=== PATIENT | male | born 1955 | race Caucasian/White ===

== ENCOUNTER → 2018-09-10 | Outpatient (CLI) | payer BC, OTHER ==
[~2018-09-10] MED LIST: ASPI-586 PO; GLUC-113 PO; LISI10TA2 PO; MULT-1056 PO; OCUVITE SOFTGE1 EACH PO; OXYC-465 PO
--- NOTE | 2018-09-10 13:39 | Diagnostic Imaging Report ---
CLINICAL INDICATION: Patient fell and twisted his left hip, low back area many years ago. Patient has low back pain and left hip pain and also affected his left knee. EXAM: MRI of the lumbar spine performed without IV contrast. Sequences include sagittal T2, sagittal T1, sagittal T2 fat-sat, and axial T2. COMPARISON: None. FINDINGS: There is no acute lumbar spine fracture or dislocation. The visualized portions of the distal thoracic spinal cord, conus medullaris, and cauda equina nerve roots are unremarkable. The conus medullaris tip is seen at the upper L1 vertebral body level. There is no significant paraspinal soft tissue abnormality. There are degenerative spurs and facet arthropathy seen throughout the lumbar spine. T12-L1: There is mild facet arthropathy. There is no significant central spinal canal or neural foramen narrowing. L1-L2: There is mild bilateral facet arthropathy. There is no significant central spinal canal or neural foramen narrowing. L2-L3: There is moderate bilateral facet arthropathy. There are hypertrophic disc spurs extending into the right subarticular and far right lateral region. There is moderate right neuroforamen narrowing. There is no significant left neuroforamen narrowing or central canal narrowing. L3-L4: There is mild diffuse disc bulge with peon-ex-tsqhwwor loss of intervertebral disc height. There is moderate bilateral facet arthropathy. There is mild central canal narrowing, zgfsjpoe-bj-slwijp right neuroforamen narrowing, and moderate left neuroforamen narrowing. L4-L5: There is severe bilateral facet arthropathy/hypertrophy. There is uhdydcjr-xp-mfvbcz bilateral neuroforamen narrowing (right side more than the left). There is moderate central canal stenosis and prominence of the epidural fat contributing to central canal stenosis. There is no significant disc bulge seen. L5-S1: There is mild broad posterior disc bulge with disc spurs extending into the right foraminal region. There is moderate bilateral facet arthropathy with hypertrophic changes. There is no significant central canal narrowing. There is prominence of the epidural fat. There is qbedhjsc-ea-rjcdbs right neuroforamen narrowing and mild left neuroforamen narrowing. IMPRESSION: 1: There is no acute lumbar spine fracture or dislocation. 2: There is multilevel lumbar spine degenerative disease with multilevel facet arthropathy/hypertrophy involving the zsh-jv-tpwze lumbar spine. There is associated ttiivnxp-ba-veikpy multilevel neuroforamen narrowing, as described above. 3: There are L3-L4 hypertrophic far right lateral disc spurs and disc spurs extending into the right foraminal region which cause yjrzgghz-je-jmueyu right neuroforamen narrowing. Dictated by: Dictated on workstation # [id number]
== END ==
LOC: RAD 08:40
PROVIDERS: ATTEND Family Medicine
DX: M51.27 Other intervertebral disc displacement, lumbosacral region (principal); M46.87 Other specified inflammatory spondylopathies, lumbosacral region; M48.07 Spinal stenosis, lumbosacral region; M47.816 Spondylosis without myelopathy or radiculopathy, lumbar region; M51.36 Other intervertebral disc degeneration, lumbar region; X50.1XXA Overexertion from prolonged static or awkward postures, initial encounter; W19.XXXA Unspecified fall, initial encounter
CPT/HCPCS: 72148

== ENCOUNTER → 2021-03-29 | Outpatient (CLI) | payer BC, OTHER ==
[~2021-03-29] MED LIST changes: +CATHETER FLUSH 10 ML SYR IV PRN; -LISI10TA2 PO; +LISI10TA25 PO; -OXYC-465 PO; +OXYC-556 PO; +REGADENOSON 0.4 MG/5 ML SYR (LEXISCAN) IV ONE
[2021-03-29 14:01] VITALS: BP 197/102
--- NOTE | 2021-03-29 15:33 | Cardiology Stress Test Report ---
Stress Test Report Date of Procedure/Referring: Date of Procedure: Mar 29, 2021 PCP Mariana Gonzalez MD Admitting Physician Fausto Barragan DO Indications: HTN Baseline Heart Rate: 66 Baseline Blood Pressure: Blood Pressure Systolic: 197 Blood Pressure Diastolic: 102 Baseline Vitals Vital Signs Date Time Temp Pulse Resp B/P (MAP) Pulse Ox O2 Delivery O2 Flow Rate FiO2 03/29/21 14:01 79 197/102 (133) 98 Baseline EKG: Baseline EKG: NSR Summary After explaining the procedure to the patient, he signed a consent and then brought to the stress nuclear laboratory. Patient received 0.4 mg Lexiscan for stress test, ECG, heart rate and blood pressure were monitored continuously. Resting and stress dose of radio tracer were injected, imaging was acquired and reviewed in short axis, horizontal long axis and vertical long axis views. TID: 1.05 SSS: 6 SDS: 0 EF: 47 1. Patient was unable to exercise beyond 2 minutes and 32 seconds on standard Piero protocol, test was terminated and converted to Lexiscan Myoview stress test 2. Patient tolerated Lexiscan well 3. Frequent PVCs noted during test persisted during test with ventricular bigeminy 4. Mild decrease uptake involving the mid to apical anterior wall with mild reversibility, fixed defect at the mid to apical inferior wall 5. Normal left ventricular size, EF 47% MARIANA GONZALEZ MD Mar 29, 2021 15:33
== END ==
LOC: CARD 12:30
PROVIDERS: ATTEND Internal Medicine Cardiovascular Disease
DX: I10 Essential (primary) hypertension (principal)
CPT/HCPCS: 78452; 93017; A9502

== ENCOUNTER 2021-04-12 09:00 | Day surgery (SDC) | payer BC, OTHER ==
[~2021-04-12] VITALS: Ht 175.3 cm; Wt 128.9 kg
[2021-04-12 07:28] VITALS: BP 149/86
--- NOTE | 2021-04-12 07:32 | Diagnostic Imaging Report ---
EXAM: CHEST 1 VIEW, AP/PA ONLY INDICATION: Shortness of breath. Chest pain. COMPARISON: None. FINDINGS: Normal heart size and pulmonary vascularity. No dense consolidation, pleural effusion or pneumothorax. No acute osseous findings. IMPRESSION: No acute cardiopulmonary findings. Dictated by: Dictated on workstation # [id number]
[2021-04-12 07:43] LABS: HEMATOCRIT 45 % (40-54); MEAN CORPUSCULAR HEMOGLOBIN 30 pg (25-34); MEAN CORPUSCULAR HGB CONC 33 g/dL (32-36); MEAN CORPUSCULAR VOLUME 89 fL (80-99); MEAN PLATELET VOLUME 11.2 fL (9.0-12.2); PLATELET COUNT 209 10^3/uL (130-400); WHITE BLOOD COUNT 7.7 10^3/uL (4.3-11.0)
[2021-04-12 07:51] LABS: ALBUMIN 4.1 GM/DL (3.2-4.5)
[2021-04-12 07:52] LABS: POTASSIUM 4.5 MMOL/L (3.6-5.0)
[2021-04-12 07:53] LABS: CALCIUM 9.4 MG/DL (8.5-10.1)
[2021-04-12 07:54] LABS: PROTHROMBIN TIME PATIENT 13.6 SEC (12.2-14.7); TOTAL PROTEIN 7.1 GM/DL (6.4-8.2)
[2021-04-12 07:56] LABS: BILIRUBIN,TOTAL 0.4 MG/DL (0.1-1.0)
--- NOTE | 2021-04-12 08:55 | Conscious Sedation/ASA ---
Conscious Sedation Pre-Proced Time 08:55 ASA Score 3 For ASA 3 and 4: Consider anesthesia and medical clearance. Also, for patients with a history of failed moderate sedation consider anesthesia. Airway Lungs Heart ASA score ASA 1: a normal healthy patient ASA 2: a patient with a mild systemic disease (mid diabetes, controlled hypertension, obesity x ASA 3: a patient with a severe systemic disease that limits activity (angina, COPD, prior Myocardial infarction) ASA 4: a patient with an incapacitating disease that is a constant threat to life (CHF, renal failure) ASA 5: a moribund patient not expected to survive 24 hrs. (ruptured aneurysm) ASA 6: a declared brain- patient whose organs are being harvested. For emergent operations, add the letter E after the classification Mallampati Classification Grade 3 Sedation Plan Analgesia, Amnesia, Plan communicated to team members, Discussed options with patient/fam, Discussed risks with patient/fam The patient is an appropriate candidate to undergo the planned procedure, sedation, and anesthesia. The patient immediately re-assessed prior to indication. MARIANA LOBO MD Apr 12, 2021 08:55
[~2021-04-12 09:00] MED LIST changes: +ASCO1CAP4 PO; -CATHETER FLUSH 10 ML SYR IV PRN; +CHOL100048 PO; +FLUT15.845 NS; +HEParin (CATH LAB) 2,000 ML IV ONE; +LIDOCAINE 1% INJ 20 ML VIAL ONE; +LISI5TAB20 PO; +MTP25TSR PO; +NS IV 1000 ML 1,000 ML IV SCH; +NS IV 1000 ML 1,000 ML ONE; +PANT40TA52 PO; -REGADENOSON 0.4 MG/5 ML SYR (LEXISCAN) IV ONE
[2021-04-12] MEDS ORDERED: HEParin 1000 UNIT/ML (10ML VIAL) FOR BOLUS ONE (09:02)
[2021-04-12] MEDS ORDERED: VERAPAMIL 5 MG/2 ML (CALAN) VIAL IV ONE (09:02)
[2021-04-12] MEDS ORDERED: fentaNYL INJ 100 MCG/2 ML AMP ONE (09:02)
[2021-04-12] MEDS ORDERED: MIDAZOLAM 5 MG/5 ML (VERSED) VIAL ONE (09:02)
[2021-04-12] MEDS ORDERED: NITRO DRIP 25000 MCG/D5W 250 ML IV ONE (09:03)
[2021-04-12 09:10] LABS: CHOLESTEROL 193 MG/DL (< 200); HDL CHOLESTEROL 35 MG/DL (40-60); TRIGLYCERIDES 123 MG/DL (<150); VLDL CHOLESTEROL 25 MG/DL (5-40)
[2021-04-12 09:32] LABS: BILIRUBIN,URINE NEGATIVE (NEGATIVE); CLARITY,URINE CLEAR; COLOR,URINE YELLOW; GLUCOSE, URINE (UA) NEGATIVE (NEGATIVE); KETONES,URINE NEGATIVE (NEGATIVE); LEUKOCYTE ESTERASE ,URINE NEGATIVE (NEGATIVE); NITRITE,URINE NEGATIVE (NEGATIVE); PROTEIN,URINE NEGATIVE (NEGATIVE)
[2021-04-12 09:42] LABS: BACTERIA,URINE NEGATIVE /HPF; SQUAMOUS EPITHELIAL CELL,UR RARE /HPF
[2021-04-12] MEDS ORDERED: ASPIRIN 325 MG (5 GR) TABLET ONE (10:01)
[2021-04-12] MEDS ORDERED: CLOPIDOGREL 300 MG (PLAVIX) TABLET PO ONE (10:01)
[2021-04-12] MEDS ORDERED: NS IV 1000 ML 1,000 ML IV SCH (10:15)
--- NOTE | 2021-04-12 10:16 | Cardiac Cath Report ---
Cardiac Cath Report Physician (s)/[employer] Officer (s) Physician MARIANA LOBO MD Pre-Procedure Diagnosis Pre-Procedure Diagnosis: Coronary artery disease Post-Procedure Note Procedure Start Date: Apr 12, 2021 Name of Procedure: Left heart catheterization Stenting to the LAD Findings/Procedure Note PROCEDURE NOTE: 66-year-old gentleman with history of hypertension, had an abnormal stress test, scheduled for cardiac catheterization possible PTCA. After explaining the procedure to the patient, all pros and cons were explained, all questions were answered. The patient signed the consent and then he was placed on the cardiac catheterization laboratory. Groin was prepped SL fashion local anesthesia was used. Sheath placed in the right radial artery, Circle catheter was advanced to the left ventricular cavity, pressure was measured, pul lback LV to aorta was done, engaged the right and left coronary system, angiogram was done. Patient has severe stenosis in the mid LAD. EBU 3.5 guide was advanced to the left system, total of 6000 units of heparin was given. BMW wire was advanced and parked distally predilatation with 3.0 balloon then deployment of zamzam point stent 3.5 x 18 mm expanded to 3.72 mm with excellent results under 17 atmospheres. Angiogram showed excellent results. At the end of the procedure the sheath was removed. Vascular band was used FINDINGS: Hemodynamics LV 114/12, end-diastolic pressure of 12 Aorta 126/82 mean of 85 ANATOMY: Left Main is free of obstructive disease Left Anterior Descending has severe stenosis at the midportion successful balloon angioplasty then deployment of zamzam point stent 3.5 x 18 mm expanded to 3.72 mm with excellent results, distal LAD has 40 to 50% stenosis Left Circumflex is moderate in size with no obstructive disease Right Coronary Artery has mild disease nonobstructive disease LV Gram was not done, pressure was measured CONCLUSION: 1. Severe stenosis in the mid LAD successful deployment of zamzam point stent 3.5 x 18 mm expanded to 3.72 mm with excellent results. 40 to 50% stenosis in the distal LAD 2. Otherwise mild coronary artery disease nonobstructive disease 3. Normal left ventricular end-diastolic pressure DISCUSSION AND RECOMMENDATION: Patient was loaded with aspirin and Plavix, started on Lipitor 20 mg daily, maximize medical therapy Anesthesia Type: Conscious Sedation Estimated blood loss (mL): 15 ml Contrast Amount: 135 ml Total Radiation Dose: 1081 mGy Post-Procedure Diagnosis Post-operative diagnosis: Chest pain Coronary artery disease Hypertension Hyperlipidemia MARIANA LOBO MD Apr 12, 2021 10:16
[2021-04-12] MEDS ORDERED: ATOR20TA66 PO (14:31)
[2021-04-12] MEDS ORDERED: CLOP75TA28 PO (14:31)
--- NOTE | 2021-04-12 14:32 | Discharge Inst-Post CATH ---
Discharge Inst-CATH/EP Problems Reviewed?: Yes Post Cardiac Cath/EP D/C Inst Follow Up/Plan Appointment with Dr Gonzalez in 2-4 weeks <b>CARDIAC CATH/EP PROCEDURE DISCHARGE INSTRUCTIONS</b> ACTIVITY * Go Home directly and rest. * Limit activity of the leg (or wrist if it was used) for 7 days including aerobics, swimming, jogging, bicycling, etc. * Restrict stair-climbing for 7 days if possible, if not, climb up with your non-cath leg, then bring together on the same step. * Avoid lifting, pushing, pulling or excessive movement of the affected extremity for 7 days. * Customary sexual activity may be resumed after 2 days-use caution not to use a position that strains or causes pain to the affected extremity. * No driving for 24 hours. * NO SMOKING. * Avoid straining for bowel movements for 7 days. * Gentle walking on level ground is allowed. * Returning to work will depend on the type of procedure and the results. Your doctor will discuss this with you. CALL YOUR DOCTOR FOR ANY OF THE FOLLOWING: *If bleeding from the puncture site occurs- Apply gentle pressure to site with clean cloth and call your doctor or EMS. * If a knot or lump forms under the skin, increases in size, or causes pain. * If bruising appears to be worsening or moving further down your leg instead of disappearing. * Temperature above 101 F. CARE OF YOUR GROIN INCISION; * Bruising or purple discoloration of the skin near the puncture site is common. * You may shower only, no bathtub bathing for 5 days. Be careful to avoid slipping as your leg may feel stiff. * If a closure device was used on your femoral artery, please see the attached guide regarding care of the device and your leg. * Leave dressing on FOR 24 hours. CARE OF YOUR WRIST INCISION; * Bruising or purple discoloration of the skin near the puncture site is common. * You may shower. * DO NOT submerge wrist. * Leave dressing on FOR 24 hours. MARIANA GONZALEZ MD Apr 12, 2021 14:31
[2021-04-13] MEDS ORDERED: PANTOPRAZOLE 40 MG (PROTONIX) TAB PO SCH (09:00)
[2021-04-13] MEDS ORDERED: lisINopril 5 MG (PRINIVIL) TABLET PO SCH (09:00)
[2021-04-13] MEDS ORDERED: ASPIRIN E.C. 81 MG (ECOTRIN) TAB PO SCH (09:00)
[2021-04-13] MEDS ORDERED: CLOPIDOGREL 75 MG (PLAVIX) TABLET PO SCH (09:00)
== END 2021-04-12 16:30 | disposition home or self-care (01) ==
LOC: CATH 09:00 → CSD 10:27 → CATH 16:30
PROVIDERS: ATTEND Internal Medicine Cardiovascular Disease
DX: I25.10 Atherosclerotic heart disease of native coronary artery without angina pectoris (principal); I10 Essential (primary) hypertension; E78.2 Mixed hyperlipidemia; J44.9 Chronic obstructive pulmonary disease, unspecified; G47.33 Obstructive sleep apnea (adult) (pediatric); I65.23 Occlusion and stenosis of bilateral carotid arteries; Z79.82 Long term (current) use of aspirin; Z87.891 Personal history of nicotine dependence; Z86.16 Personal history of COVID-19; Z79.899 Other long term (current) drug therapy
CPT/HCPCS: 71045; 80053; 80061; 81000; 85027; 85610; 85730; 87081; 93458; C1725; C1769; C1874; C1887; C1894; C9600; 36415

== ENCOUNTER → 2022-04-16 | Outpatient (CLI) | payer MEDICARE, OTHER ==
[~2022-04-16] VITALS: Ht 172 cm; Wt 122.0 kg
[~2022-04-16] MED LIST changes: +ATOR20TA66 PO; +CLOP75TA28 PO; -HEParin (CATH LAB) 2,000 ML IV ONE; -LIDOCAINE 1% INJ 20 ML VIAL ONE; -NS IV 1000 ML 1,000 ML IV SCH; -NS IV 1000 ML 1,000 ML ONE; +REGADENOSON 0.4 MG/5 ML SYR (LEXISCAN) IV ONE
[2022-04-16] MEDS: CATHETER FLUSH 10 ML SYR IVP PRN ×2 (09:16→10:05)
[2022-04-16 10:02] VITALS: BP 161/107
--- NOTE | 2022-04-16 12:37 | Cardiology Stress Test Report ---
Stress Test Report Date of Procedure/Referring: Date of Procedure: Apr 16, 2022 PCP Fausto Barragan DO Admitting Physician Admitting Physician: Attending Physician: Jayesh Gonzalez MD Indications: CHF Baseline Heart Rate: 60 Baseline Blood Pressure: Blood Pressure Systolic: 161 Blood Pressure Diastolic: 107 Baseline Vitals Vital Signs Date Time Temp Pulse Resp B/P (MAP) Pulse Ox O2 Delivery O2 Flow Rate FiO2 04/16/22 10:02 64 16 161/107 (125) 98 Room Air Baseline EKG: Baseline EKG: NSR Summary After explaining the procedure to the patient, he signed a consent and then brought to the stress nuclear laboratory. Patient received 0.4 mg Lexiscan for stress test, ECG, heart rate and blood pressure were monitored continuously. Resting and stress dose of radio tracer were injected, imaging was acquired and reviewed in short axis, horizontal long axis and vertical long axis views. TID: 1.04 SSS: 9 SDS: 6 EF: 39 1. Patient tolerated Lexiscan well 2. Frequent PVCs/ventricular trigeminy noted and persisted during test 3. Total infarction of the apex with reversible ischemia involving the mid to apical anterior wall and inferoapical segment 4. Dilated left ventricle with anterior wall hypokinesia ejection fraction 39% Copy Copies To 1: FAUSTO BARRAGAN BASHAR J MD Apr 16, 2022 12:37
== END ==
LOC: CARD 08:59
PROVIDERS: ATTEND Internal Medicine Cardiovascular Disease
DX: I10 Essential (primary) hypertension (principal)
CPT/HCPCS: 78452; 93017; A9502

== ENCOUNTER 2022-04-25 11:43 | Day surgery (SDC) | payer MEDICARE, OTHER ==
[~2022-04-25] VITALS: Ht 175 cm; Wt 122.0 kg
[2022-04-25] VITALS (8 sets, daily range): BP systolic 130–180; BP diastolic 80–119
[~2022-04-25 11:43] MED LIST changes: -REGADENOSON 0.4 MG/5 ML SYR (LEXISCAN) IV ONE
[2022-04-25] MEDS ORDERED: NS IV 1000 ML 1,000 ML IV SCH ×3 (12:00→14:00)
[2022-04-25] MEDS ORDERED: NS IV 1000 ML 1,000 ML ONE (12:22)
[2022-04-25] MEDS ORDERED: HEParin (CATH LAB) 2,000 ML IV ONE (12:22)
[2022-04-25] MEDS ORDERED: LIDOCAINE 1% INJ 20 ML VIAL ONE (12:23)
[2022-04-25 12:31] LABS: BILIRUBIN,URINE NEGATIVE (NEGATIVE); CLARITY,URINE CLEAR; COLOR,URINE YELLOW; GLUCOSE, URINE (UA) NEGATIVE (NEGATIVE); KETONES,URINE NEGATIVE (NEGATIVE); LEUKOCYTE ESTERASE ,URINE NEGATIVE (NEGATIVE); NITRITE,URINE NEGATIVE (NEGATIVE); PROTEIN,URINE NEGATIVE (NEGATIVE)
[2022-04-25 12:34] LABS: HEMATOCRIT 46 % (40-54); HEMOGLOBIN 15.2 g/dL (13.3-17.7); MEAN CORPUSCULAR HEMOGLOBIN 29 pg (25-34); MEAN CORPUSCULAR HGB CONC 33 g/dL (32-36); MEAN CORPUSCULAR VOLUME 87 fL (80-99); MEAN PLATELET VOLUME 10.7 fL (9.0-12.2); PLATELET COUNT 225 10^3/uL (130-400); WHITE BLOOD COUNT 8.7 10^3/uL (4.3-11.0)
--- NOTE | 2022-04-25 12:38 | Diagnostic Imaging Report ---
INDICATION: Coronary artery disease Frontal chest obtained at 1214 p.m. compared to 04/12/2021 Heart is borderline in size. There is mild central vascular congestion without focal infiltrate or edema. There is no pleural fluid or pneumothorax. IMPRESSION: Negative chest. Dictated by: Dictated on workstation # [id number]
[2022-04-25 12:43] LABS: PROTHROMBIN TIME PATIENT 13.3 SEC (12.2-14.7)
[2022-04-25 12:44] LABS: BACTERIA,URINE NEGATIVE /HPF; RBC,URINE RARE /HPF
[2022-04-25 12:48] LABS: BILIRUBIN,TOTAL 0.6 MG/DL (0.1-1.0); CALCIUM 9.9 MG/DL (8.5-10.1); CREATININE SERUM 0.92 MG/DL (0.60-1.30); POTASSIUM 4.1 MMOL/L (3.6-5.0); TOTAL PROTEIN 6.9 GM/DL (6.4-8.2)
--- NOTE | 2022-04-25 13:03 | Cardiac Procedure Note-CS/ASA ---
Pre-Procedure Note Pre-Op Procedure Note Date of Available H&P: Apr 16, 2022 Date H&P Reviewed: Apr 25, 2022 Time H&P Reviewed: 13:02 History & Physical: H&P Reviewed, Patient Examed, No changes noted Pre-Operative Diagnosis: Coronary artery disease Conscious Sedation Pre-Proced ASA Score 3 For ASA 3 and 4: Consider anesthesia and medical clearance. Also, for patients with a history of failed moderate sedation consider anesthesia. Airway Lungs Heart ASA score ASA 1: a normal healthy patient ASA 2: a patient with a mild systemic disease (mid diabetes, controlled hypertension, obesity ASA 3: a patient with a severe systemic disease that limits activity (angina, COPD, prior Myocardial infarction) ASA 4: a patient with an incapacitating disease that is a constant threat to life (CHF, renal failure) ASA 5: a moribund patient not expected to survive 24 hrs. (ruptured aneurysm) ASA 6: a declared brain- patient whose organs are being harvested. For emergent operations, add the letter E after the classification Mallampati Classification Grade 3 Sedation Plan Analgesia, Amnesia, Plan communicated to team members, Discussed options with patient/fam, Discussed risks with patient/fam The patient is an appropriate candidate to undergo the planned procedure, sedation, and anesthesia. The patient immediately re-assessed prior to indication. MARIANA LOBO MD Apr 25, 2022 13:02
[2022-04-25] MEDS ORDERED: METO50TA7 PO (13:08)
[2022-04-25] MEDS ORDERED: ATOR20TA66 PO (13:08)
[2022-04-25] MEDS ORDERED: ASPI-1238 PO (13:08)
[2022-04-25] MEDS ORDERED: POLY30DR6 OP (13:08)
[2022-04-25] MEDS ORDERED: CLOP75TA28 PO (13:08)
[2022-04-25] MEDS ORDERED: VERAPAMIL 5 MG/2 ML (CALAN) VIAL IV ONE (13:26)
[2022-04-25] MEDS ORDERED: MIDAZOLAM 5 MG/5 ML (VERSED) VIAL ONE (13:26)
[2022-04-25] MEDS ORDERED: HEParin 1000 UNIT/ML (10ML VIAL) FOR BOLUS ONE (13:26)
[2022-04-25] MEDS ORDERED: NITRO DRIP 25000 MCG/D5W 250 ML IV ONE (13:26)
[2022-04-25] MEDS ORDERED: fentaNYL INJ 100 MCG/2 ML AMP ONE (13:26)
--- NOTE | 2022-04-25 13:58 | Discharge Inst-Post CATH ---
Discharge Inst-CATH/EP Problems Reviewed?: Yes Post Cardiac Cath/EP D/C Inst Follow Up/Plan Appointment with Dr. Gonzalez's office in 2 to 4 weeks <b>CARDIAC CATH/EP PROCEDURE DISCHARGE INSTRUCTIONS</b> ACTIVITY * Go Home directly and rest. * Limit activity of the leg (or wrist if it was used) for 7 days including aer obics, swimming, jogging, bicycling, etc. * Restrict stair-climbing for 7 days if possible, if not, climb up with your non-cath leg, then bring together on the same step. * Avoid lifting, pushing, pulling or excessive movement of the affected extremi ty for 7 days. * Customary sexual activity may be resumed after 2 days-use caution not to use a position that strains or causes pain to the affected extremity. * No driving for 24 hours. * NO SMOKING. * Avoid straining for bowel movements for 7 days. * Gentle walking on level ground is allowed. * Returning to work will depend on the type of procedure and the results. Your doctor will discuss this with you. CALL YOUR DOCTOR FOR ANY OF THE FOLLOWING: *If bleeding from the puncture site occurs- Apply gentle pressure to site with clean cloth and call your doctor or EMS. * If a knot or lump forms under the skin, increases in size, or causes pain. * If bruising appears to be worsening or moving further down your leg instead of disappearing. * Temperature above 101 F. CARE OF YOUR GROIN INCISION; * Bruising or purple discoloration of the skin near the puncture site is common. * You may shower only, no bathtub bathing for 5 days. Be careful to avoid slipping as your leg may feel stiff. * If a closure device was used on your femoral artery, please see the attached guide regarding care of the device and your leg. * Leave dressing on FOR 24 hours. CARE OF YOUR WRIST INCISION; * Bruising or purple discoloration of the skin near the puncture site is common. * You may shower. * DO NOT submerge wrist. * Leave dressing on FOR 24 hours. MRAIANA GONZALEZ MD Apr 25, 2022 13:58
--- NOTE | 2022-04-25 14:01 | Cardiac Cath Report ---
Cardiac Cath Report Physician (s)/Per Diem Registered Nurse (s) Physician MARIANA LOBO MD Pre-Procedure Diagnosis Pre-Procedure Diagnosis: Coronary artery disease Post-Procedure Note Procedure Start Date: Apr 25, 2022 Name of Procedure: Left heart catheterization Findings/Procedure Note PROCEDURE NOTE: 67-year-old gentleman with history of coronary artery disease stenting to the LAD, had an abnormal stress test, scheduled for cardiac catheterization possible PTCA. After explaining the procedure to the patient, all pros and cons were explained, all questions were answered. The patient signed the consent and then he was placed in the cardiac catheterization laboratory. Groin was prepped in SL fashion local anesthesia was used. Sheath placed in the right radial artery, [place] catheter was advanced to the left ventricular cavity, pressure was measured, pullback LV to aorta was done, engage the right and left coronary system, angiogram was done. At the end of the procedure the sheath was removed. Vascular band was used FINDINGS: Hemodynamics LV 117/12, end-diastolic pressure of 12 Aorta 105/67 mean of 81 ANATOMY: Left Main is free of obstructive disease Left Anterior Descending has patent stent in the mid LAD, mild disease in the distal LAD less than 20% stenosis otherwise no significant obstructive disease Left Circumflex has mild disease less than 20% stenosis nonobstructive disease Right Coronary Artery is dominant artery with no obstructive disease LV Gram was not done, pressure was measured CONCLUSION: 1. Patent stent in the mid LAD otherwise mild coronary artery disease no obstructive disease 2. Normal left ventricular end-diastolic pressure DISCUSSION AND RECOMMENDATION: Continue with medical therapy, no intervention is warranted Anesthesia Type: Conscious Sedation Estimated blood loss (mL): 10 ml Contrast Amount: 42 ml Total Radiation Dose: 452 mGy Post-Procedure Diagnosis Post-operative diagnosis: Chest pain Coronary artery disease Hypertension Hyperlipidemia MARIANA LOBO MD Apr 25, 2022 14:01
== END 2022-04-25 16:30 | disposition home or self-care (01) ==
LOC: CATH 11:43 → SDC 14:12 → CATH 16:30
PROVIDERS: ATTEND Internal Medicine Cardiovascular Disease
DX: I25.10 Atherosclerotic heart disease of native coronary artery without angina pectoris (principal); I10 Essential (primary) hypertension; E78.2 Mixed hyperlipidemia; I65.23 Occlusion and stenosis of bilateral carotid arteries; K21.9 Gastro-esophageal reflux disease without esophagitis; G47.33 Obstructive sleep apnea (adult) (pediatric); Z79.02 Long term (current) use of antithrombotics/antiplatelets; Z79.82 Long term (current) use of aspirin; Z79.899 Other long term (current) drug therapy; Z86.16 Personal history of COVID-19
CPT/HCPCS: 71045; 80053; 81000; 85027; 85610; 85730; 87081; 93005; 93458; C1894; 36415